=== PATIENT | female | born 1990 | race Caucasian/White ===

== ENCOUNTER 2020-10-29 14:41 | Emergency (ER) | payer SELFPAY ==
[~2020-10-29] VITALS: Ht 165.1 cm; Wt 68.2 kg
[~2020-10-29 14:41] MED LIST: CYCL-331 PO
[2020-10-29] MEDS ORDERED: IV RINGERS SOLUTION,LACTATED 1,000 ML IV ONE (15:30)
[2020-10-29] MEDS ORDERED: METOCLOPRAMIDE HCL 10 MG/2 ML VIAL. IVP ONE (15:30)
--- NOTE | 2020-10-29 15:32 | PHYS DOC ---
Past History Past Medical History: Anemia, Endometriosis, Seizure Past Surgical History: Other Additional Past Surgical Histo: laproscopy Smoking: Non-smoker Alcohol Use: None Drug Use: Marijuana Adult General Chief Complaint Chief Complaint: ABDOMINAL PAIN IN [facility] HPI Patient is a 30-year-old female with a history of endometriosis and 2 previous miscarriages and one term presenting with left lower quadrant abdominal pain. She reports pain began approximately 2 to 3 days ago in the bilateral suprapubic region with associated nausea and vomiting. She reports no blood in the vomit. Initially she thought her symptoms were due to constipation so she t ook [id number] laxatives and some ibuprofen for management. She reports she began having a bowel movement yesterday and reports it was loose and nonbloody, however she reported reports symptoms did not jose miguel, and she continues to have left lower quadrant abdominal pain. She reports she has not seen a physician to confirm her yet, however she has establish care with a local clinic. She reports calling that clinic within the last week because of some vaginal spotting however the clinic reportedly told her that vaginal spotting within the first trimester is fairly common and they did not want to see her prior to the end of her first trimester. The patient does report several complications with her past , however does not remember all the details. Patient denies injection drug use, alcohol use, and reportedly has stopped using marijuana and smoking cigarettes 3 weeks ago. Patient reports previous laparotomy secondary to complications from endometriosis and needing an emergent with the of her only child. Patient denies syncope, chest pain, shortness of breath, fever, new vaginal discharge, and pain/burning on urination. Review of Systems Review of Systems Fourteen body systems of review of systems have been reviewed. See HPI for pertinent positives and negative responses, other myles all other systems are negative, non-pertinent or non-contributory Allergies Allergies Allergies Coded Allergies Type Severity Reaction Last Updated Verified No Known Drug Allergies 10/01/13 No Physical Exam Physical Exam Constitutional: Well developed, well nourished, no acute distress, non-toxic appearance. Tearful on exam HENT: Normocephalic, atraumatic, bilateral external ears normal, oropharynx moist, no oral exudates, nose normal. Eyes: PERRLA, EOMI, conjunctiva normal, no discharge. Neck: Normal range of motion, no tenderness, supple, no stridor. No meningismus Cardiovascular:Heart rate regular rhythm, no murmur. Radial pulses 2 out of 4 bilaterally no lower extremity edema bilaterally Lungs & Thorax: Bilateral breath sounds clear to auscultation Abdomen: Bowel sounds normal, soft, no masses, no pulsatile masses. Tenderness to palpation in the left lower quadrant. Negative CVA tenderness bilaterally, negative Wood sign, negative McBurney point tenderness, no rebound or guarding, negative obturator sign on right positive obturator sign on the left, negative psoas sign, negative heel strike bilaterally. Skin: Warm, dry, no erythema, no rash. Back: No tenderness, no CVA tenderness. Extremities: No tenderness, no cyanosis, no clubbing, ROM intact, no edema. Neurologic: Alert and oriented X 3, normal motor function, normal sensory function, no focal deficits noted. Psychologic: Affect normal, judgement normal, mood normal. Current Patient Data Vital Signs Vital Signs Date Time Temp Pulse Resp B/P (MAP) Pulse Ox O2 Delivery O2 Flow Rate FiO2 10/29/20 14:50 98.6 98 18 107/72 (84) 98 Room Air Lab Results Laboratory Tests Test 10/29/20 15:10 10/29/20 15:16 Urine Collection Type Void Urine Color Straw Urine Clarity Clear Urine pH 6.0 Urine Specific [place] 1.015 Urine Protein Neg Urine Glucose (UA) Neg mg/dL Urine Ketones (Stick) Neg mg/dL Urine Blood Neg Urine Nitrite Neg Urine Bilirubin Neg Urine Urobilinogen Dipstick 0.2 mg/dL Urine Leukocyte Esterase Neg Urine RBC 0 /HPF Urine WBC 0 /HPF Urine Bacteria 0 /HPF White Blood Count 10.9 x10^3/uL Red Blood Count 3.65 x10^6/uL Hemoglobin 11.7 g/dL Hematocrit 34.2 % Mean Corpuscular Volume 94 fL Mean Corpuscular Hemoglobin 32 pg Mean Corpuscular Hemoglobin Concent 34 g/dL Red Cell Distribution Width 13.0 % Platelet Count 206 x10^3/uL Neutrophils (%) (Auto) 79 % Lymphocytes (%) (Auto) 13 % Monocytes (%) (Auto) 7 % Eosinophils (%) (Auto) 0 % Basophils (%) (Auto) 1 % Neutrophils # (Auto) 8.6 x10^3uL Lymphocytes # (Auto) 1.5 x10^3/uL Monocytes # (Auto) 0.8 x10^3/uL Eosinophils # (Auto) 0.0 x10^3/uL Basophils # (Auto) 0.1 x10^3/uL Maternal Serum HCG Beta Subunit 97315 mIU/mL Sodium Level 137 mmol/L Potassium Level 3.4 mmol/L Chloride Level 103 mmol/L Carbon Dioxide Level 24 mmol/L Anion Gap 10 Blood Urea Nitrogen 9 mg/dL Creatinine 0.5 mg/dL Estimated GFR (Cockcroft-Gault) 145.9 BUN/Creatinine Ratio 18 Glucose Level 85 mg/dL Calcium Level 9.1 mg/dL Total Bilirubin 0.3 mg/dL Aspartate Amino Transf (AST/SGOT) 19 U/L Alanine Aminotransferase (ALT/SGPT) 39 U/L Alkaline Phosphatase 47 U/L Total Protein 6.7 g/dL Albumin 3.4 g/dL Albumin/Globulin Ratio 1.0 Current Medications Medications (Trade) Dose Ordered Sig/Ondina Route PRN Reason Start Time Stop Time Status Last Admin Dose Admin Lactated Ringer's 1,000 ml @ 150 mls/hr 1X ONCE IV 10/29/20 15:30 10/29/20 16:33 DC 10/29/20 15:56 Metoclopramide HCl (Reglan Vial) 10 mg 1X ONCE IVP 10/29/20 15:30 10/29/20 15:40 DC 10/29/20 15:56 EKG EKG [] Radiology/Procedures Radiology/Procedures EXAM: Ultrasound US OB <14 WKS +TV 10/29/2020 3:10 PM INDICATION: 2-3 months , nausea and vomiting for 3 days. Left lower quadrant tenderness. COMPARISON: None FINDINGS: The uterus measures 15.4 x 8.9 x 7.4 cm and is retroverted. There is a single living intrauterine gestation in breech position. heart rate is 169 bpm. Unable to assess anatomy due to early gestational age. biometry: Biparietal diameter: 2.4 cm, 14 weeks, 0 days Head circumference: 8.4 cm, 13 weeks, 5 days Abdominal circumference: 7.3 cm, 13 weeks, 6 days Femur length: 1.0 cm, 12 weeks, 6 days HC/AC ratio: 1.2 Estimated gestational age by ultrasound: 13 weeks 4 days. Sonographic EDC: 05/02/2021 There is a 3.6 x 2.8 x 2.6 cm simple left ovarian cyst. Normal bilateral ovarian blood flow. IMPRESSION: 1. Single living with gestational age by ultrasound 13 weeks 4 days. Sonographic EDC is 05/02/2021. 2. 3.6 cm simple left ovarian cyst. Normal bilateral ovarian blood flow. Electronically signed by: Monica Richter MD (10/29/2020 4:04 PM) [id number] Heart Score C/O Chest Pain: No HEART Score for Chest Pain: HEART Score for Chest Pain Response (Comments) Value History Slighlty/Non-Suspicious 0 Age < 45 0 Risk Factors No Risk Factors 0 Total 0 Risk Factors: Risk Factors: DM, Current or recent (<one month) smoker, HTN, HLP, family hi story of CAD, obesity. Risk Scores: Risk Factors: DM, Current or recent (<one month) smoker, HTN, HLP, family history of CAD, obesity. Course & Med Decision Making Course & Med Decision Making Patient is a 30-year-old female presenting with left lower quadrant pain. Vitals were within normal limits on exam and physical exam revealed tenderness to the left lower quadrant/left suprapubic region. Ultrasound was ordered to evaluate and evaluate for possible appendicitis. CBC CMP and serum beta hCG were ordered. Patient was given some Reglan and a liter bolus of lacta ora Ringer's for symptomatic improvement. ER work-up reviewed that was grossly unremarkable showing single live fetus at 13 weeks 4 days and a left ovarian cyst. Discussed next steps in care, patient deferred any further diagnostic work-up in ER, states she wanted "peace of mind" that baby was okay. Has good access to primary care physician and can be seen by [facility] this upcoming week for evaluation and further management of left ovarian cyst as indicated. Supportive care practices advised. Advised patient to take Tylenol for pain, take daily multivitamin among other changes that will promote a healthy . I did disclose this might be an acute presentation of more concerning pathology and stressed need for close outpatient follow-up. Strict return precautions were discussed with good understanding by patient, all questions and concerns addressed prior to ER departure Dragon Disclaimer Dragon Disclaimer This electronic medical record was generated, in whole or in part, using a voice recognition dictation system. Departure Departure: Impression: Primary Impression: Abdominal pain affecting Additional Impressions: Left ovarian cyst Anemia Disposition: DC HOME SELF CARE/HOMELESS Condition: STABLE Referrals: PCP,KARYN (PCP) Patient Instructions: ABCs of , Abdominal Pain During Additional Instructions: As discussed prior to ER departure, your exam was overall non-concerning for emergent/surgical pathology. You were found to have a single living with gestational age by ultrasound 13 weeks 4 days. Sonographic EDC is 05/02/2021. You were also found to have a 3.6 cm simple left ovarian cyst. Normal bilateral ovarian blood flow. No additional workup is required in the ER setting. As discussed, please call your PCP and OBGYN to review ER visit today and discuss next steps in care If any concerning signs or symptoms present prior to outpatient follow-up please don't hesitate to come back for repeat evaluation. It was a please to take care of you and I wish you the best! Problem Qualifiers RYLAND LAINEZ DO Oct 29, 2020 15:32
[2020-10-29 15:36] LABS: CLARITY,URINE CLEAR; COLOR,URINE STRAW
[2020-10-29 15:37] LABS: BACTERIA,URINE 0 /HPF (0-FEW); BILIRUBIN,URINE NEG (NEG); GLUCOSE,URINE NEG (NEG); NITRITE,URINE NEG (NEG); RBC,URINE 0 /HPF (0-2); UROBILINOGEN,URINE 0.2 mg/dL (0.2 mg/dL); WBC,URINE 0 /HPF (0-4)
[2020-10-29 15:43] LABS: BASO # 0.1 x10^3/uL (0.0-0.2); BASO % 1 % (0-3); EOS % 0 % (0-3); HEMATOCRIT 34.2 % (36.0-47.0); HEMOGLOBIN 11.7 g/dL (12.0-15.5); LYMPH # 1.5 x10^3/uL (1.0-4.8); LYMPH % 13 % (24-48); MEAN CORPUSCULAR HEMOGLOBIN 32 pg (25-35); MEAN CORPUSCULAR HGB CONC 34 g/dL (31-37); MEAN CORPUSCULAR VOLUME 94 fL (79-100); MONO # 0.8 x10^3/uL (0.0-1.1); MONO % 7 % (0-9); NEUT # 8.6 x10^3uL (1.8-7.7); NEUT % 79 % (31-73); PLATELET COUNT 206 x10^3/uL (140-400); RED BLOOD COUNT 3.65 x10^6/uL (3.50-5.40); WHITE BLOOD COUNT 10.9 x10^3/uL (4.0-11.0)
[2020-10-29 15:54] LABS: CALCIUM 9.1 mg/dL (8.5-10.1); CREATININE 0.5 mg/dL (0.6-1.0); GFR 145.9; POTASSIUM 3.4 mmol/L (3.5-5.1)
[2020-10-29 16:01] LABS: ALBUMIN 3.4 g/dL (3.4-5.0); TOTAL BILIRUBIN 0.3 mg/dL (0.2-1.0); TOTAL PROTEIN 6.7 g/dL (6.4-8.2)
--- NOTE | 2020-10-29 16:06 | RAD ---
EXAM: Ultrasound US OB <14 WKS +TV 10/29/2020 3:10 PM INDICATION: 2-3 months , nausea and vomiting for 3 days. Left lower quadrant tenderness. COMPARISON: None FINDINGS: The uterus measures 15.4 x 8.9 x 7.4 cm and is retroverted. There is a single living intrauterine ges tation in breech position. heart rate is 169 bpm. Unable to assess anatomy due to early g estational age. biometry: Biparietal diameter: 2.4 cm, 14 weeks, 0 days Head circumference: 8.4 cm, 13 weeks, 5 days Abdominal circumference: 7.3 cm, 13 weeks, 6 days Femur length: 1.0 cm, 12 weeks, 6 days HC/AC ratio: 1.2 Estimated gestational age by ultrasound: 13 weeks 4 days. Sonographic EDC: 05/02/2021 There is a 3.6 x 2.8 x 2.6 cm simple left ovarian cyst. Normal bilateral ovarian blood flow. IMPRESSION: 1. Single living with gestational age by ultrasound 13 weeks 4 days. Sonographic EDC is 05/2021. 2. 3.6 cm simple left ovarian cyst. Normal bilateral ovarian blood flow. Electronically signed by: Monica Richter MD (10/29/2020 4:04 PM) [id number]
[2020-10-29 16:31] VITALS: BP 110/74
== END 2020-10-29 16:33 | disposition home or self-care (01) ==
LOC: ER 14:41
DX: O34.81 Maternal care for other abnormalities of pelvic organs, first trimester (principal); N83.202 Unspecified ovarian cyst, left side; O99.011 Anemia complicating pregnancy, first trimester; Z3A.13 13 weeks gestation of pregnancy
CPT/HCPCS: 36415; 76801; 76817; 80053; 81001; 84702; 85025; 96361; 96374; 99284; J2765; J7120

== ENCOUNTER 2020-12-30 12:38 | Emergency (ER) | payer SELFPAY ==
[~2020-12-30] VITALS: Ht 165.1 cm; Wt 68.2 kg
--- NOTE | 2020-12-30 13:33 | PHYS DOC ---
Past History Past Medical History: Other Additional Past Medical Histor: ENOMETRIOSIS, OVARIAN CYSTS, PLACENTA ACCRETA 01/10 Past Surgical History: , TURP Additional Past Surgical Histo: LAP FOR ENDOMETRIOSIS Smoking: Non-smoker Alcohol Use: None Drug Use: Marijuana Adult General Chief Complaint Chief Complaint: ABDOMINAL PAIN IN [facility] HPI Patient is a 30-year-old female presenting for pubic pain. Onset was earlier today without any known inciting event, trauma or exposure. Patient is currently , reports being 22 weeks and unsure the day, is followed at [facility] due to history of placenta accreta. Pain is sharp, focal and nonradiating. Reports she was on her way to [facility] but did not think she could make it all the way down there due to the pain so she stopped here for evaluation. Nothing known makes better or worse. She is experienced pain like this in the past but reports this is increased severity prompting her to come in for evaluation. She is G Review of Systems Review of Systems Fourteen body systems of review of systems have been reviewed. See HPI for pertinent positives and negative responses, other myles all other systems are negative, non-pertinent or non-contributory Allergies Allergies Allergies Coded Allergies Type Severity Reaction Last Updated Verified No Known Drug Allergies 10/01/13 No Physical Exam Physical Exam Constitutional: Well developed, well nourished, moderate distress due to pain, non-toxic appearance. HENT: Normocephalic, atraumatic, bilateral external ears normal, oropharynx dry with poor dentition, no oral exudates, nose normal. Eyes: PERRLA, EOMI, conjunctiva normal, no discharge. Neck: Normal range of motion, no tenderness, supple, no stridor. Cardiovascular: Heart rate regular, sinus rhythm, no murmurs rubs or gallops Lungs & Thorax: Bilateral breath sounds clear to auscultation Abdomen: Bowel sounds normal, soft, generalized pubic tenderness with palpation, abdomen grossly unremarkable without rebound or guarding, no masses, no pulsatile masses. Nonsurgical abdomen, no peritoneal signs Skin: Warm, dry, no erythema, no rash. Back: No tenderness, no CVA tenderness. Extremities: No tenderness, no cyanosis, no clubbing, ROM intact, no edema. Neurologic: Alert and oriented X 3, grossly normal motor & sensory function, no focal deficits noted. Psychologic: Anxious affect and mood Current Patient Data Vital Signs Vital Signs Date Time Temp Pulse Resp B/P (MAP) Pulse Ox O2 Delivery O2 Flow Rate FiO2 12/30/20 12:50 98.6 85 16 123/74 (90) 98 Room Air Lab Results Current Medications Medications (Trade) Dose Ordered Sig/Ondina Route PRN Reason Start Time Stop Time Status Last Admin Dose Admin Acetaminophen (Tylenol) 1,000 mg 1X ONCE PO 12/30/20 13:45 12/30/20 13:46 DC 12/30/20 14:17 Fentanyl Citrate (Fentanyl 2ml Vial) 50 mcg 1X ONCE IVP 12/30/20 13:45 12/30/20 13:46 DC 12/30/20 14:22 EKG EKG [] Radiology/Procedures Radiology/Procedures EXAM: US OB Limited CLINICAL HISTORY: Reason: 22WK PREG, HX OF PLACENTA ACCRETA, the patient reports known placenta accreta with prior imaging done at [facility]. COMPARISON: OB ultrasound 10/29/2020 TECHNIQUE: Limited transabdominal ultrasound of the uterus was performed. FINDINGS: NUMBER: Single POSITION: Vertex PLACENTA: Location: Complete placenta previa. Prominent vessels along the posterior aspect of the placenta overlying the cervix and between the placenta and bladder. ANATOMY: HEART RATE: 163.00 (beats per minute) COMMENTS: Detail anatomy scan not performed on this limited OB ultrasound. Current measurements are: BPD - 5.55 = 22w6d HC -19.80 = 22w0d AC - 18.29 = 23w1d FL - 3.71 = 21w6d Estimated weight: 510 g., 42nd percentile ROBB 15.8 cm MATERNAL ANATOMY CERVIX Length (cm): Difficult to visualize due to shadowing. OVARIES/ADNEXAE: No masses seen. CUL-DE-SAC: No fluid. HISTORICAL DATES Last menstrual period: 07/27/2020 CALCULATED DATES EGA (LMP): 22 weeks 2 days SIRENA (LMP): 05/03/2021 EGA (US): 22 weeks 2 days SIRENA (US): 05/02/2021 IMPRESSION: 1. Single living intrauterine in vertex position with gestational age by ultrasound 22 weeks 3 days. SIRENA by ultrasound: 05/02/2021. heart rate 163 bpm. 2. Complete placenta previa. Prominent vessels along the posterior wall of the placenta overlying the cervix, and between the placenta and bladder. The patient reportedly has a known history of placenta accreta with prior imaging done a [facility]. Recommend maternal- medicine consultation/follow-up for further evaluation and management. Electronically signed by: Monica Richter MD (12/30/2020 2:49 PM) [id number] Heart Score C/O Chest Pain: No Risk Factors: Risk Factors: DM, Current or recent (<one month) smoker, HTN, HLP, family history of CAD, obesity. Risk Scores: Risk Factors: DM, Current or recent (<one month) smoker, HTN, HLP, family history of CAD, obesity. Course & Med Decision Making Course & Med Decision Making Discussed with the patient all findings and diagnostic testing. I reviewed no emergent or surgical findings but as mention, I disclosed placenta previa finding on ultrasound. Patient reports she thinks this is what she is being followed for at [facility]. Patient symptoms completely resolved with ER intervention. ER course was reviewed at length, I discussed little late indication for further diagnostic work-up and/or need for hospital admission at present, patient agreed. As such, I stressed need for close outpatient follow- up to review today's ER visit. Strict return precautions were also discussed at length with good understanding by patient. Patient voiced understanding and agreement with the plan. Patient knows to come back for repeat evaluation if concerning signs or symptoms present prior to outpatient follow-up. Hemodynami ebony stable, ambulatory and well-appearing at time of disposition. Dragon Disclaimer Dragon Disclaimer This electronic medical record was generated, in whole or in part, using a voice recognition dictation system. Departure Departure: Impression: Primary Impression: Pelvic pain Additional Impression: and not yet delivered in second trimester Disposition: 01 HOME / SELF CARE / HOMELESS Condition: STABLE Referrals: PCP,NO (PCP) Additional Instructions: You were seen for abdominal/pelvic pain. While the etiology of your pain is not precisely known at this time, further studies are needed to find the answer to this issue. The [facility] doctors want to see you in the clinic, please follow-up with your [facility] team for continued outpatient work-up and further evaluation. Your finding of placenta previa was discussed today and so, you need to ensure you are following up with maternal- medicine specialist at [facility] if you are not already doing so. You need to return to the ED immediately if you develop worsening pain, heavy vaginal bleeding, chest pain, shortness of breath, excessive fatigue, lightheadedness, or any other new or concerning symptoms. It was a pleasure to take care of you and I wish you the best going forward Problem Qualifiers RYLAND LAINEZ DO Dec 30, 2020 13:33
[2020-12-30] MEDS ORDERED: ACETAMINOPHEN 500 MG TABLET PO ONE (13:45)
[2020-12-30 13:49] LABS: CALCIUM 8.7 mg/dL (8.5-10.1); CREATININE 0.5 mg/dL (0.6-1.0); GFR 145.9; POTASSIUM 3.7 mmol/L (3.5-5.1)
[2020-12-30 13:50] LABS: BASO # 0.1 x10^3/uL (0.0-0.2); BASO % 1 % (0-3); EOS # 0.1 x10^3/uL (0.0-0.7); EOS % 1 % (0-3); LYMPH # 1.2 x10^3/uL (1.0-4.8); LYMPH % 8 % (24-48); MEAN CORPUSCULAR HEMOGLOBIN 32 pg (25-35); MEAN CORPUSCULAR HGB CONC 34 g/dL (31-37); MEAN CORPUSCULAR VOLUME 94 fL (79-100); MONO # 0.8 x10^3/uL (0.0-1.1); MONO % 5 % (0-9); NEUT # 12.6 x10^3uL (1.8-7.7); NEUT % 85 % (31-73); PLATELET COUNT 231 x10^3/uL (140-400); RED BLOOD COUNT 3.41 x10^6/uL (3.50-5.40); RED CELL DISTRIBUTION WIDTH 12.3 % (11.5-14.5); WHITE BLOOD COUNT 14.7 x10^3/uL (4.0-11.0)
[2020-12-30 13:54] LABS: BARBITURATES NEG (NEG); BENZODIAZEPINES NEG (NEG); CANNABINOIDS NEG (NEG); COCAINE NEG (NEG); METHADONE NEG (NEG); OPIATES NEG (NEG); PHENCYCLIDINE NEG (NEG)
[2020-12-30 13:55] LABS: ALBUMIN 2.9 g/dL (3.4-5.0); ALBUMIN/GLOBULIN RATIO 0.8 (1.0-1.7); TOTAL BILIRUBIN 0.4 mg/dL (0.2-1.0); TOTAL PROTEIN 6.6 g/dL (6.4-8.2)
[2020-12-30 13:57] LABS: AMPHETAMINE/METHAMPHETAMINE NEG (NEG)
[2020-12-30 14:00] VITALS: BP 98/56
[2020-12-30 14:13] LABS: BACTERIA,URINE 0 /HPF (0-FEW); BILIRUBIN,URINE NEG (NEG); CLARITY,URINE CLEAR; COLOR,URINE YELLOW; GLUCOSE,URINE NEG (NEG); NITRITE,URINE NEG (NEG); RBC,URINE 0 /HPF (0-2); UROBILINOGEN,URINE 0.2 mg/dL (0.2 mg/dL); WBC,URINE OCC /HPF (0-4)
[2020-12-30 14:14] LABS: SQUAMOUS EPITHELIAL CELL,UR MANY /LPF
--- NOTE | 2020-12-30 14:51 | RAD ---
EXAM: US OB Limited CLINICAL HISTORY: Reason: 22WK PREG, HX OF PLACENTA ACCRETA, the patient reports known placenta accre ta with prior imaging done at [facility]. COMPARISON: OB ultrasound 10/29/2020 TECHNIQUE: Limited transabdominal ultrasound of the uterus was performed. FINDINGS: NUMBER: Single POSITION: Vertex PLACENTA: Location: Complete placenta previa. Prominent vessels along the posterior aspect of the placen ta overlying the cervix and between the placenta and bladder. ANATOMY: HEART RATE: 163.00 (beats per minute) COMMENTS: Detail anatomy scan not performed on this limited OB ultrasound. Current measurements are: BPD - 5.55 = 22w6d HC -19.80 = 22w0d AC - 18.29 = 23w1d FL - 3.71 = 21w6d Estimated weight: 510 g., 42nd percentile ROBB 15.8 cm MATERNAL ANATOMY CERVIX Length (cm): Difficult to visualize due to shadowing. OVARIES/ADNEXAE: No masses seen. CUL-DE-SAC: No fluid. HISTORICAL DATES Last menstrual period: 07/27/2020 CALCULATED DATES EGA (LMP): 22 weeks 2 days SIRENA (LMP): 05/03/2021 EGA (US): 22 weeks 2 days SIRENA (US): 05/02/2021 IMPRESSION: 1. Single living intrauterine in vertex position with gestational age by ultrasound 22 week s 3 days. SIRENA by ultrasound: 05/02/2021. heart rate 163 bpm. 2. Complete placenta previa. Prominent vessels along the posterior wall of the placenta overlying the cervix, and between the placenta and bladder. The patient reportedly has a known history of placenta accreta with prior imaging done a . Recommend maternal- medicine consultation/follow-up for f urther evaluation and management. Electronically signed by: Monica Richter MD (12/30/2020 2:49 PM) [id number]
== END 2020-12-30 15:32 | disposition home or self-care (01) ==
LOC: ER 12:38
DX: O26.892 Other specified pregnancy related conditions, second trimester (principal); R10.2 Pelvic and perineal pain; Z3A.22 22 weeks gestation of pregnancy
CPT/HCPCS: 36415; 76815; 80053; 80307; 81001; 85025; 96374; 99285; J3010